=== PATIENT | male | born 1975 | race African-American/Black ===

== ENCOUNTER 2017-10-24 13:39 | Inpatient (IN) | payer OTHER ==
[~2017-10-24] VITALS: Ht 177.8 cm; Wt 68.2 kg
[~2017-10-24 13:39] MED LIST: MOTRIN600 MG PO
[2017-10-24 17:17] LABS: HEMATOCRIT 35.3 % (38.0-50.0); HEMOGLOBIN 11.4 G/DL (12.5-16.6); MCH 22.3 PG (29.0-34.0); MCHC 32.3 G/DL (30.0-36.0); MCV 69.1 FL (86-99); PLATELET COUNT 309 K/uL (156-360); RBC DIS.WIDTH-CV 17.5 % (11.8-14.6); RBC DIS.WIDTH-SD 42.4 % (39-53); RED BLOOD COUNT 5.11 M/uL (4.00-5.50); WHITE BLOOD COUNT 5.5 K/uL (4.1-10.2)
[2017-10-24 17:23] LABS: CHLORIDE 105 mEq/L (99-109); POTASSIUM 4.4 mEq/L (3.7-5.4); SODIUM 142 mEq/L (136-147)
[2017-10-24 17:24] LABS: GLUCOSE 112 mg/dL (70-99)
[2017-10-24 17:28] LABS: SERUM ETHYL ALCOHOL < 10 mg/dL
[2017-10-24 17:29] LABS: CREATININE 1.1 mg/dL (0.6-1.3); GFR ESTIMATE (CALCULATED) > 59 mL/min/ (58.99-99999)
[2017-10-24 17:30] LABS: UREA NITROGEN (BUN) 11 mg/dL (9-23)
[2017-10-24 17:32] LABS: ACETAMINOPHEN (TYLENOL) < 10 mcg/mL (10-30); SALICYLATE < 5.0 MG/DL (15-30)
[2017-10-24 17:42] LABS: COCAINE PRESUMPTIVE POSITIVE (150 ng/mL); METHAMPHETAMINE NEGATIVE (500 ng/mL); PHENCYCLIDINE PRESUMPTIVE POSITIVE (25 ng/mL); THC CANNABINOIDS PRESUMPTIVE POSITIVE (50 ng/mL)
[2017-10-24 17:43] LABS: AMPHETAMINE NEGATIVE (500 ng/mL); BARBITURATES NEGATIVE (200 ng/mL); BENZODIAZEPINES NEGATIVE (150 ng/mL); BUPRENORPHINE PRESUMPTIVE POSITIVE (10 ng/mL); METHADONE NEGATIVE (200 ng/mL); OPIATES (MORPHINE) PRESUMPTIVE POSITIVE (100 ng/mL); OXYCODONE NEGATIVE (100 ng/mL); PROPOXYPHENE NEGATIVE (300 ng/mL); TRICYCLIC ANTIDEPRESSANTS NEGATIVE (300 ng/mL)
[2017-10-24 22:07] VITALS: BP 146/77
[2017-10-25 08:03] VITALS: BP 117/60
[2017-10-25 16:11] VITALS: BP 131/63
[2017-10-26 08:02] VITALS: BP 127/76
[2017-10-26 17:06] VITALS: BP 119/72
[2017-10-27 07:32] VITALS: BP 121/72
== END 2017-10-27 14:55 | disposition other institution (70) | DRG 897 ==
LOC: EME 13:39 → 1WEST 20:11 → EDOF 20:11 → ENRESERV 21:58 → 1WEST 22:00
PROVIDERS: Emergency Medicine
DX: F11.23 Opioid dependence with withdrawal (principal); F16.20 Hallucinogen dependence, uncomplicated; F12.20 Cannabis dependence, uncomplicated; F10.20 Alcohol dependence, uncomplicated; F17.200 Nicotine dependence, unspecified, uncomplicated
CPT/HCPCS: 71046; 80048; 84999; 85027; 90839; 97150 GO; 97165 GO; 99281; 99285; G0480; J0572; Q0169; Q0177